=== PATIENT | female | born 1960 | race Caucasian/White ===

== ENCOUNTER 2016-07-14 10:37 | Emergency (ER) | payer BC ==
[2016-01-02 13:41] VITALS: BMI 33.9
[~2016-07-14 10:37] MED LIST: BUPROPION XL300 MG PO
== END 2016-07-14 13:10 | disposition home or self-care (01) ==
LOC: D.ER 10:37
DX: M54.30 Sciatica, unspecified side (principal); F32.9 Major depressive disorder, single episode, unspecified

== ENCOUNTER → 2019-06-22 15:21 | Outpatient (CLI) | payer BC ==
[2016-01-02 13:41] VITALS: BMI 33.9
== END | disposition home or self-care (01) ==
LOC: D.MRI 15:21
PROVIDERS: ATTEND Clinical Nurse Specialist Family Health
DX: M25.512 Pain in left shoulder (principal)

== ENCOUNTER 2019-07-24 07:19 | Outpatient (CLI) | payer BC, OTHER ==
[~2019-07-24] VITALS: Ht 157.5 cm; Wt 87.3 kg
--- NOTE | ~2019-07-24 | HEMODYNAMI ---
PATIENT:MEDINA BANKS MEDICAL RECORD: [id number] : 60 LOCATION:[facility] ADMISSION DATE: 07/24/19 Generatedon:07/24/201910:06 Patient name: MEDINA BANKS Patient #: [id number] SSN: [id number] : 1960 Date of study: 07/24/2019 Page: Of Hemodynamic Procedure Report Patient Data Patient Demographics Procedure consent was obtained First Name: MEDINA Gender: Female Last Name: JOCELYN : 1960 Patient #: [id number] Age: 59 year(s) Race: SSN: [id number] Additional ID: [id number] Contact details [address]: [address] [place] [address] STREET State: [place] City: [facility] Zip code: [address] Admission Admission Data Admission Date: 07/24/2019 Admission Time: 7:19 Procedure Procedure Types Cath Procedure Diagnostic Procedure LHC LHC w/Coronaries Sedation Charges Moderate Sedation up to 15 minutes Procedure Description Procedure Date Procedure Date: 07/24/2019 Procedure Start Time: 9:52 Procedure End Time: 10:01 Procedure Staff Name Function Rosanna Siddiqui RT Monitor Sukhwinder Cabrera MD Performing Physician Donna Nesbitt RT Scrub Shelly Lord RN Nurse Procedure Data Cath Procedure Fluoroscopy Diagnostic fluoroscopy Total fluoroscopy Time: 2 time: 2 min min Diagnostic fluoroscopy Total fluoroscopy dose: 347 dose: 347 mGy mGy Contrast Material Contrast Material Type Amount (ml) Isovue 300 33 Entry Location Entry Primary Successful Side Size Upsize Upsize Entry Closure Taylor ccessful Closure Location (Fr) 1 (Fr) 2 (Fr) Remarks Device Remarks Radial Right 6 Fr Mechanical artery Short Compression Estimated blood loss: 5 ml Diagnostic catheters Device Type Used For End Catheter Placement DIAGNOSTIC Boody 110cm 5 Multi-vessel Fr catheter ([id number]) Angiography Procedure Complications No complications Procedure Medications Medication Administration Route Dosage 0.9% NaCl I.V. 100 ml/hr Oxygen etCO2 Nasal cannula 2 l/min Lidocaine 2% added to field 20 Heparin Flush Bag added to field 2 bags (1000units/500ml NS) Radial Cocktail added to field 1 syringe (Verapamil 2mg/Nitro 400mcg/Heparin 1500units) Versed I.V. 2 mg Fentanyl I.V. 50 mcg Versed I.V. 2 mg Fentanyl I.V. 50 mcg Versed I.V. 1 mg Fentanyl I.V. 25 mcg Hemodynamics Rest Heart Rate: 40 (bpm) Pressure Samples Time Site Value (mmHg) Purpose Heart Use Rate(bpm) 9:55 LV 71/28,52 Snapshot 84 Snapshots Pre Cath Intra NCS Post Cath Vital Signs Time Heart Resp SPO2 etCO2 NIBP (mmHg) Rhythm Pain Sedation Rate (ipm) (%) (mmHg) Status Level (bpm) 9:33:02 89 16 98 38 122/86(113) NSR 0 (11) 10(A) , No pain 9:37:09 88 15 99 38.6 129/80(100) NSR 0 (11) 10(A) , No pain 9:41:17 97 13 98 38.4 124/80(95) NSR 0 (11) 10(A) , No pain 9:45:31 83 11 98 32.2 110/65(97) NSR 0 (11) 10(A) , No pain 9:49:35 91 10 99 27.6 109/78(90) NSR 0 (11) 10(A) , No pain 9:53:43 77 17 98 19.9 106/58(92) NSR 0 (11) 10(A) , No pain 9:57:46 85 11 97 18.4 118/74(92) NSR 0 (11) 10(A) , No pain Medications Time Medication Route Dose Verified Delivered Reason Notes Ef fectiveness by by 9:36:36 0.9% NaCl I.V. 100 Sukhwinder Shelly used for ml/hr Rick Lord bi tester 9:36:43 Oxygen etCO2 2 l/min Sukhwinder Shelly used for Nasal Rick Lord procedure cannula RN 9:36:47 Lidocaine 2% added 20ml Sukhwinder Pretty for local to vial Rick Cabrera MD anesthetic field 9:36:50 Heparin Flush added 2 bags Sukhwinder Pretty used for Bag to Rick Cabrera MD procedure (1000units/500ml field NS) 9:36:58 Radial Cocktail added 1 Sukhwinder Pretty used for (Verapamil to syringe Rick Cabrera MD procedure 2mg/Nitro field 400mcg/Hepari 9:43:17 Versed I.V. 2 mg Sukhwinder Shelly for Rick Lord sedation RN 9:43:25 Fentanyl I.V. 50 mcg Sukhwinder Shelly for Rick Lord sedation RN 9:50:33 Versed I.V. 2 mg Sukhwinder Shelly for Rick Lord sedation RN 9:50:40 Fentanyl I.V. 50 mcg Sukhwinder Shelly for Rick Lord sedation RN 9:55:51 Versed I.V. 1 mg Sukhwinder Shelly for Rick Lord sedation RN 9:55:57 Fentanyl I.V. 25 mcg Sukhwinder Shelly for Rick Lord sedation supervisor coil winding Log Time Note 9:11:13 Donna Nesbitt RT(R) sent for patient. Start room use. 9:30:20 Informed consent obtained and on chart 9:30:51 Diagnostic Cath Status : Elective 9:31:19 Time tracking: Regular hours (M-F 7:00 - 5:00) 9:31:26 Plan of Care:Hemodynamics will remain stable., Cardiac rhythm will remain stable., Comfort level will be maintained., Respiratory function will remain adequate., Patient/ family verbilizes understanding of procedure., Procedure tolerated without complication., Recovers from procedure without complications.. 9:31:36 Patient received from Pre/Post Procedure Room to CCL 2 Alert and oriented. Tansferred to table in Supine position. 9:31:37 Warm blankets applied, and jazmine hugger turned on for patient comfort. 9:31:38 Correct patient and procedure confirmed by team. 9:31:39 ECG and BP/O2 sat monitors applied to patient. 9:32:04 Vital chart was started 9:32:19 Baseline sample Acquired. 9:32:23 Rhythm: sinus rhythm 9:32:24 Full Disclosure recording started 9:32:28 H&P Date Dictated: 07/24/2019 H&P Addendum completed by physician on day of procedure. (MUST COMPLETE FOR ALL OUTPATIENTS), New H&P dictated by physician.. 9:32:29 Pre-procedure instructions explained to patient. 9:32:30 Pre-op teaching completed and patient verbalized understanding. 9:32:33 Family in patients room. 9:32:34 Patient NPO since Midnight. 9:32:37 Is the patient allergic to Iodine/contrast media? No. 9:32:38 Was the patient premedicated? Yes 9:32:46 Is patient on blood thinner?No 9:32:47 Patient diabetic? No. 9:32:49 Previous problem with sedation/anesthesia? No ? 9:32:51 Sleep apnea? No 9:32:51 Snore? No 9:32:52 Deviated septum? No 9:32:53 Opens mouth fully? Yes 9:32:54 Sticks out tongue? Yes 9:32:55 Airway obstruction? No ? 9:32:58 Dentures? No ? 9:33:09 Pre procedure: right dorsailis pedis pulse 2+ Normal; easily identifiable; not easily obliterated 9:33:12 Pre procedure: left dorsailis pedis pulse 2+ Normal; easily identifiable; not easily obliterated 9:33:14 Patient pain scale 0/10 ?. 9:33:21 IV patent on arrival in left forearm with 0.9% NaCl at [facility]. 9:33:24 Lab results completed and on chart. 9:36:36 0.9% NaCl 100 ml/hr I.V. was administered by Shelly Lord RN; used for procedure; Verbal order read back and verified. 9:36:43 Oxygen 2 l/min etCO2 Nasal cannula was administered by Shelly Lord RN; used for procedure; Verbal order read back and verified. 9:36:47 Lidocaine 2% 20ml vial added to field was administered by Sukhwinder Cabrera MD; for local anesthetic; Verbal order read back and verified. 9:36:50 Heparin Flush Bag (1000units/500ml NS) 2 bags added to field was administered by Sukhwinder Cabrera MD; used for procedure; Verbal order read back and verified. 9:36:58 Radial Cocktail (Verapamil 2mg/Nitro 400mcg/Heparin 1500units) 1 syringe added to field was administered by Sukhwinder Cabrera MD; used for procedure; Verbal order read back and verified. 9:40:35 Baseline sample Acquired. 9:40:58 Risk of Mortality: 0.1 9:41:00 Risk of blood transfusion: 0.1 9:41:02 Risk of WILNER: 0.4 9:41:08 Right Radial & Right Groin area was prepped with chlora-prep and draped in sterile fashion 9:41:09 Alarms reviewed by R. N. 9:41:10 Sharps counted by scrub and verified by R.N. 9:42:13 Physician arrived 9:42:14 Final Timeout: patient, procedure, and site verified with staff and physician. All members of the team are in agreement. 9:42:14 --------ALL STOP TIME OUT------ 9:42:17 Right Radial & Right Groin site verified by team. 9:42:20 Fire Safety Assessment: A--An alcohol-based skin anteseptic being used preoperatively., C--Open oxygen or nitrous oxide is being used., D--An ESU, laser, or fiber-optic light is being used. 9:42:23 Physical assessment completed. ASA score P 2 - A patient with mild systemic disease as per Sukhwinder Cabrera MD. 9:42:32 2) 60-89 Mildly reduced kidney function, and other findings (as for stage 1) point to kidney disease. 9:43:17 Versed 2 mg I.V. was administered by Shelly Lord RN; for sedation; Verbal order read back and verified. 9:43:25 Fentanyl 50 mcg I.V. was administered by Shelly Lord RN; for sedation; Verbal order read back and verified. 9:47:08 Maximum allowable contrast dose (3.7 X eGFR X 0.75)188 ml. 9:47:12 Sedation plan: IV Moderate Sedation Medication:Versed, Fentanyl 9:47:16 Use device set Radial Dx or PCI 9:47:18 Bag Decanter () opened to sterile field. 9:47:18 Medline Cath Pack ([id number]) opened to sterile field. 9:47:18 ACIST Syringe (15891) opened to sterile field. 9:47:19 ACIST Hand Control (44793) opened to sterile field. 9:47:20 Tegaderm 4 x 4 (1626W) opened to sterile field. 9:47:20 ACIST Manifold (45938) opened to sterile field. 9:47:21 MBrace Wrist Support ([id number]) opened to sterile field. 9:47:24 SHEATH 6FR RAIN (3269557) opened to sterile field. 9:47:24 EMERALD Guide Wire (896-136) opened to sterile field. 9:50:33 Versed 2 mg I.V. was administered by Shelly Lord RN; for sedation; Verbal order read back and verified. 9:50:40 Fentanyl 50 mcg I.V. was administered by Shelly Lord RN; for sedation; Verbal order read back and verified. 9:51:20 Procedure started. 9:52:54 Local anesthetic to right radial artery with Lidocaine 2% by Sukhwinder Cabrera MD.INITIAL ACCESS ONLY 9:53:19 A 6 Fr Short sheath was inserted into the Right Radial artery 9:53:29 A DIAGNOSTIC Boody 110cm 5 Fr catheter (292423) was advanced over the wire and used for Multi-vessel Angiography. 9:55:15 LV hemodynamics recorded. 9:55:16 LV gram done using TRAYLOR 9:55:21 EF : 60 % 9:55:23 Injector settings: Ml/sec: 5, Volume: 15, 9:55:35 RCA angiography performed. 9:55:40 Injector settings: Ml/sec: 3, Volume: 6, 9:55:51 Versed 1 mg I.V. was administered by Shelly Lord RN; for sedation; Verbal order read back and verified. 9:55:57 Fentanyl 25 mcg I.V. was administered by Shelly Lord RN; for sedation; Verbal order read back and verified. 9:56:24 Catheter removed. 9:56:44 GUIDE 6FR XBC 3 ([id number]) opened to sterile field. 9:57:39 LCA angiography performed. 9:57:43 Injector settings: Ml/sec: 3, Volume: 6, 9:58:12 Catheter removed. 9:58:19 ZEPHYR REGULAR TR BAND (067443) opened to sterile field. 9:58:34 Sheath removed intact; hemostasis achieved with Mechanical Compression to the Right Radial artery. 9:58:36 Procedure ended.(Physican Out) 9:58:50 Fluoroscopy time 02.00 minutes. 9:58:54 Fluoroscopy dose: 347 mGy 9:58:54 Flurop Dose total: 347 9:59:07 Dose Area Product 45281 mGy/cm. 9:59:11 Contrast amount:Isovue 300 33ml. 9:59:12 Maximum allowable dose exceeded? No. 9:59:13 Sharps counted by scrub and verified by R.N. 9:59:15 [place] band inflated with 10cc of air. 9:59:17 Insertion/operative site no bleeding no hematoma. 9:59:20 Post right radial artery:stable 9:59:22 Post Procedure Pulses reassessed and unchanged 9:59:25 Post procedure rhythm: unchanged. 9:59:27 Estimated blood loss: 5 ml 9:59:29 Post procedure instruction explained to patient.Patient verbalizes understanding. 9:59:30 Patient needs reinforcement of post procedure teaching. 10:00:17 Procedure type changed to Cath procedure, Diagnostic procedure, LHC, [facility] w/Coronaries, Sedation Charges, Moderate Sedation up to 15 minutes 10:00:51 Procedure and supply charges have been captured, reviewed, submitted and are correct. 10:00:55 Procedure Complication : No complications 10:00:57 Vital chart was stopped 10:01:01 [facility] Findings: mild to moderate CAD (<70%) 10:01:03 Operative report dictated upon procedure completion. 10:01:04 See physician's report for complete and final results. 10:01:10 Report given to Pre/Post Procedure Room. 10:01:12 Full Disclosure recording stopped 10:01:12 Procedure ended. 10:01:19 End room use (Document Last) 10:01:58 End room use (Document Last) 10:02:26 End room use (Document Last) Device Usage Item Name Manufacture Quantity Catalog Hospital Part Current Minima l Lot# / Number Charge Number Stock Stock Serial# Code ACIST Acist 1 48310 216914 817577 [id number] 20 Syringe Medical (93299) Systems Inc Medline Medline 1 [id number] [id number] 02019 138797 5 Cath Pack ([id number]) Bag Microtek 1 834086 51131 810718 5 Decanter Medical Inc. () ACIST Hand Acist 1 64274 442488 212476 292530 5 Control Medical (65213) Systems Inc ACIST Acist 1 65365 758969 595875 230137 5 Manifold Medical (26007) Systems Inc Tegaderm 4 3M 1 1626W 569951 022453 532423 5 x 4 (1626W) MBrace Advanced 1 140-0250-00 546575 72360 254650 5 Wrist Vascular Support Dynamics ([id number]) EMERALD Cardinal 1 502455 583021 286028 968423 5 Guide Wire Health (502455) SHEATH 6FR Cardinal 1 5076988 023735 9810348 201147 5 RAIN Health (6538745) DIAGNOSTIC Terumo 1 40-9313 779941 295174 600134 5 Boody 110cm 5 Fr catheter (440421) GUIDE 6FR Cardinal 1 63581500 515851 49930 347252 5 XBC 3 Health (19903332) ZEPHYR Cardinal 1 534140 350905 1784972 760793 5 REGULAR TR Health BAND (262225) Signature Audit [place] Stage Time Signature Unsigned Intra-Procedure 07/24/2019 Rosanna Siddiqui 10:01:58 AM RT(R) Intra-Procedure 07/24/2019 Shelly Lord 10:02:26 AM MICKI Intra-Procedure 07/24/2019 Sukhwinder Cabrera MD 10:02:45 AM 07/24/2019 10:05:46 AM Intra-Procedure 07/24/2019 Sukhwinder Cabrera 10:06:36 AM Signatures Monitor : Rosanna Siddiqui RT Signature : Date : Time : Performing Physician : Signature : Sukhwinder Cabrera MD Date : Time : Nurse : Shelly Lord RN Signature : Date : Time : [facility] [address] [place] [address]
[~2019-07-24 07:19] MED LIST changes: +CELEBREX200 MG PO; +HYDROCODON-ACE1 EA10 PO; +LEVOTHYROXINE75 MCG PO; +TOPAMAX50 MG PO
[2019-07-24] MEDS ORDERED: SOMA350 MG PO (07:56)
[2019-07-24 08:12] VITALS: BP 150/81; Ht 157.5 cm; Wt 87.3 kg
[2019-07-24 08:33] LABS: BASOPHILS 0.4 % (0-2); EOSINOPHILS 2.8 % (0-7); HEMATOCRIT 43.7 % (36.0-48.0); HEMOGLOBIN 14.6 g/dL (12-16); IMMATURE GRANULOCYTES 0.2 % (0-5); LYMPHOCYTES 39.8 % (15-50); MCH 29.6 pg (26.0-34.0); MCHC 33.4 g/dL (31.0-37.0); MCV 88.6 fL (80.0-100.0); MEAN PLATELET VOLUME 9.6 fL (7.4-10.4); MONOCYTES 7.4 % (2-11); NEUTROPHILS 49.4 % (40-80); PLATELET COUNT 269 10x3/uL (130-400); RBC 4.93 10x6/uL (4.00-5.40); RDW 12.4 % (11.5-14.5); WBC 5.3 10x3/uL (4.8-10.8)
[2019-07-24 09:00] LABS: CALCIUM 8.9 mg/dL (8.5-10.1); CARBON DIOXIDE 26.8 mmol/L (21.0-32.0); CHOL - HDL RATIO 4.8 ratio (2.3-4.1); CREATININE - SERUM 0.9 mg/dL (0.6-1.3); LDL-HDL RATIO 3.3 ratio (1.5-3.5); POTASSIUM - SERUM 3.8 mmol/L (3.5-5.1)
--- NOTE | 2019-07-24 10:10 | NUR ---
PATIENT ARRIVED TO ROOM 8, PLACED ON CM AND 2L NC. VSS. RIGHT Z BAND WITH WRIST IMMOBILIZER IN PLACE, NO S/S OF BLEEDING OR HEMATOMA.
--- NOTE | 2019-07-24 10:25 | NUR ---
PATIENT RESTING, VSS ON 2L NC. RIGHT RADIAL SITE IS CDI, NO S/S OF BLEEDING OR HEMATOMA. NO C/O PAIN, NUMBNESS, OR TINGLING. WILL CONTINUE TO MONITOR.
--- NOTE | 2019-07-24 10:55 | NUR ---
PATIENT RESTING, VSS ON ROOM AIR. RIGHT RADIAL SITE IS CDI, NO S/S OF BLEEDING OR HEMATOMA. 3CC OF AIR REMOVED.
--- NOTE | 2019-07-24 11:25 | NUR ---
REMAINING AIR REMOVED FROM Z BAND, DRESSING APPLIED IS CDI, NO S/S OF BLEEDING OR HEMATOMA. NO C/O PAIN, NUMBNESS, OR TINGLING. VSS ON ROOM AIR. HEAD OF BED ELEVATED AT 90 DEGREES, PATIENT GIVEN TURKEY SANDWICH AND SODA PER REQUEST, NO N/V.
--- NOTE | 2019-07-24 12:00 | NUR ---
DRESSING AT RIGHT RADIAL SITE IS CDI, NO S/S OF BLEEDING OR HEMATOMA. NO C/O PAIN, NUMBNESS, OR TINGLING. VSS ON ROOM AIR. PHYSICIAN AT BEDSIDE TO UPDATE PATIENT. WRITTEN AND VERBAL DISCHARGE INSTRUCTIONS GIVEN TO PATIENT, PATIENT VOICES UNDERSTANDING. NO N/V.
--- NOTE | 2019-07-24 12:15 | NUR ---
PATIENT TRANSPORTED VIA WHEELCHAIR TO CAR WITH FRIEND DRIVING, ALL BELONGINGS WITH PATIENT.
--- NOTE | 2019-07-27 11:54 | HP ---
PATIENT: MEDINA BANKS MEDICAL RECORD: [id number] ACCOUNT: [id number] LOCATION:[facility] : 60 ADMISSION DATE: 07/24/19 PCP: ROBERT MEDINA MD HISTORY AND PHYSICAL EXAMINATION DATE OF SERVICE: 07/24/2019 ADMITTING DIAGNOSES: 1. Chest pain. 2. Shortness of breath. 3. Abnormal nuclear stress test. HISTORY OF PRESENT ILLNESS: Ms. Banks presents with chest pain, having shortness of breath. Risk stratification with stress test shows intermediate risk, now brought for cardiac catheterization. REVIEW OF SYSTEMS: The patient reports easy bruising but reports no swollen glands. The patient reports no fever, no night sweats, no significant weight gain, no significant weight loss. No significant exercise tolerance. The patient reports no dry eyes, no irritation, no vision change. Patient reports no difficulty hearing and no ear pain. Patient reports no frequent nose bleeds or nose and sinus problems. Patient reports no arm pain on exertion. No shortness of breath while lying down. No history of heart murmur. Patient reports no cough, no wheezing or coughing up blood. Patient reports no abdominal pain, no vomiting. Normal appetite. No diarrhea and not vomiting blood. No nausea and no constipation. Patient reports no incontinence. No difficulty urinating. No hematuria. No increased frequency. Patient reports no muscle aches. No weakness, no arthralgias, no back pain. No swelling of the extremities. Patient reports no abnormal mole, no jaundice, no rashes. Reports no loss of consciousness. No weakness and no numbness. No seizures, dizziness, or headaches. The patient reports no depression, no sleep disturbance, feeling safe in a relationship and no alcohol abuse. Patient reports on fatigue. Reports no runny nose or sinus pressure. No itching, no hives, and no frequent sneezing. PHYSICAL EXAMINATION: CONSTITUTIONAL/GENERAL APPEARANCE: Well nourished, well developed, appears stated age. EYES: Lids and conjunctivae noninjected. No discharge. No pallor. ENT: Lips within normal limit. No cyanosis. No pallor. NECK: Carotid arteries, bilateral normal upstroke. No bruits. No thrills. No jugular venous pressure or distention. CERVICAL LYMPH NODES: Nontender. Nonenlarged. THYROID: Not enlarged. No nodules. CARDIOVASCULAR: Precordial exam, nondisplaced. No heaves or pericardial thrills. Rate and rhythm, regular. Heart sounds, normal S1, normal S2. No S3, no gallop, no rub. Systolic murmur, not heard. Diastolic murmur, not heard. RESPIRATORY: Respiratory effort, unlabored. Normal curvature. No thoracic deformity. No chest wall tenderness. Percussion, resonant. Auscultation, clear. No wheezes, no rales, no rhonchi. ABDOMEN: Soft, nondistended, nontender. No abdominal pain, no vomiting and normal appetite. MUSCULOSKELETAL: No joint tenderness, normal gait, normal tone. SKIN: Warm and dry. HISTORY AND PHYSICAL [id number] MEDINA BANKS OVERALL IMPRESSION: Chest pain, abnormal nuclear stress test, high likelihood of hemodynamically significant coronary artery disease. We will proceed with coronary angiography. Further care depends upon findings of the angiography. TRANSINT:[id number] Voice Confirmation ID: [id number] DOCUMENT ID: [id number] BRITTANEY SELBY MD at 1154 CC: [id number] DICTATION DATE: 07/24/19 1011 PLUSH DRESSER: 07/24/19 1036 DEP CLI 07/24/19 [id number] [place] [address]
--- NOTE | 2019-07-27 11:54 | OP ---
PATIENT NAME: MEDINA BANKS MEDICAL RECORD: [id number] :60 LOCATION:D.CAT ADMISSION DATE: SURGEON: BRITTANEY SELBY MD DATE OF OPERATION: 07/24/2019 PROCEDURES: 1. Left heart catheterization. 2. Selective coronary angiography. 3. Left ventriculogram. INDICATION: Angina and coronary artery disease. PROCEDURE IN DETAIL: After informed consent was obtained and after a detailed description of the risks, benefits as well as alternative therapies, the patient elected to proceed with angiogram and heart catheterization. The right radial area was prepped and draped in normal sterile fashion. Right radial artery was cannulated via modified Seldinger technique with placement of 6-Amharic sheath. All catheters exchanged through this sheath. FINDINGS: Left ventriculogram was performed in standard 30-degree TRAYLOR view, reveals good cardiac wall motion throughout all segments. Overall ejection fraction estimated at 60%. SELECTIVE CORONARY ANGIOGRAPHY: Left main, left anterior descending, left circumflex, right coronary artery are all smooth-walled vessels with no angiographic evidence of coronary artery disease. OVERALL IMPRESSION: 1. No angiographic evidence of coronary artery disease. 2. Normal left heart pressures. 3. Normal left ventricular systolic function. Chest pain is noncardiac in etiology. No further cardiac workup needs to be ascertained. TRANSINT:[id number] Voice Confirmation ID: [id number] DOCUMENT ID: [id number] BRITTANEY SELBY MD at 1154 CC: [id number] DICTATION DATE: 07/24/19 1000 SENIOR CENTER MANAGER: 07/24/19 1227 DEP CLI 07/24/19 [place] [address]
== END 2019-07-24 12:15 ==
LOC: D.CATH 07:19
PROVIDERS: ATTEND Internal Medicine Interventional Cardiology
DX: I25.119 Atherosclerotic heart disease of native coronary artery with unspecified angina pectoris (principal); R07.9 Chest pain, unspecified; R06.02 Shortness of breath; R94.39 Abnormal result of other cardiovascular function study

== ENCOUNTER 2020-02-26 07:16 | Day surgery (SDC) | payer MEDICAID ==
[~2020-02-26] VITALS: Ht 157.5 cm; Wt 90.7 kg
[~2020-02-26 07:16] MED LIST changes: +SOMA350 MG PO
[2020-02-26 07:41] LABS: BASOPHILS 0.4 % (0-2); EOSINOPHILS 0.9 % (0-7); HEMATOCRIT 41.7 % (36.0-48.0); HEMOGLOBIN 13.8 g/dL (12-16); IMMATURE GRANULOCYTES 0.2 % (0-5); LYMPHOCYTES 38.1 % (15-50); MCHC 33.1 g/dL (31.0-37.0); MCV 87.6 fL (80.0-100.0); MEAN PLATELET VOLUME 9.7 fL (7.4-10.4); MONOCYTES 11.5 % (2-11); NEUTROPHILS 48.9 % (40-80); PLATELET COUNT 266 10x3/uL (130-400); RBC 4.76 10x6/uL (4.00-5.40); WBC 5.5 10x3/uL (4.8-10.8)
[2020-02-26 07:56] LABS: ANION GAP 13.1 mmol/L (8-16); CALCIUM 9.1 mg/dL (8.5-10.1); CARBON DIOXIDE 24.3 mmol/L (21.0-32.0); CREATININE - SERUM 0.9 mg/dL (0.6-1.3); POTASSIUM - SERUM 3.4 mmol/L (3.5-5.1)
[2020-02-26 10:23] VITALS: BP 135/70; Ht 157.5 cm; Wt 90.7 kg
--- NOTE | 2020-02-26 20:10 | NUR ---
RX'D WITH NORCO FOR PAIN. PT STATED PAIN DOWN TO 4/10. AMBULATED TO BR AND VOIDED WITHOUT DIFFICULTY. IV D/C'D WITH CANNULA INTACT, PRESSURD HELD AND DRSG PLACED. DISCHARGE INSTRUCTIONS GIVEN AND PT VERBALIZED AN UNDERSTANDING. DISCHARGED IN STABLE CONDITION AND W/O C/O
[2020-03-20] MEDS ORDERED: BACTRIM DS TAB1 EAC1 PO (20:50)
[2020-03-20] MEDS ORDERED: ACETAMINOPHEN500 M1 PO (20:51)
[2020-03-20] MEDS ORDERED: MUPIROCIN22 GM TOPICAL (20:51)
[2020-03-24] MEDS ORDERED: CIPRO500 MG PO (08:26)
[2020-03-24] MEDS ORDERED: TRAZODONE HCL100 MG PO (08:26)
--- NOTE | 2020-03-25 20:12 | OP ---
PATIENT NAME: MEDINA BANKS MEDICAL RECORD: [id number] :60 LOCATION:D.[facility] ADMISSION DATE: SURGEON: NARAYAN SEYMOUR MD DATE OF OPERATION: 02/26/2020 PREOPERATIVE DIAGNOSES: Symptomatic gallstones, also fatty liver disease. POSTOPERATIVE DIAGNOSES: Symptomatic gallstones, also fatty liver disease. PROCEDURES: 1. Laparoscopic cholecystectomy. 2. Intraoperative cholangiography without immediate surgeon interpretation. 3. 18-gauge core needle liver biopsies. SURGEON: Narayan Seymour MD SUPERVISOR TURKEY FARM: None. BLOOD LOSS: Minimal. ANESTHESIA: General. COMPLICATIONS: None. The risks, possible complications, and alternatives to the procedure were explained to the patient. She elects to proceed. The discussion specifically included, but was not limited to, bleeding requiring emergency reoperation, infection, intestinal injury, as well as common bile duct injury. OPERATIVE COURSE: The patient was conveyed to the operating room electively on 02/26/2020. General anesthesia was induced by the anesthesia staff. The incision was accomplished within the umbilicus. I dissected down to the umbilical hernia. Stay sutures of 0 Vicryl were placed on either side of the umbilical hernia defect which was incised and made larger. I then undermined some of the skin around the hernia defect. Through this incision, I inserted a 12-mm trocar. CO2 insufflation was begun. Once a sufficient pneumoperitoneum had been achieved, a 5-mm trocar was inserted through an incision in the left upper quadrant. A 5-mm trocar was inserted through an incision in the epigastrium. Another 5-mm trocar was inserted through an incision in the right upper quadrant. During the insertion of the trocars, there was no apparent injury to the bowels, any intraperitoneal or retroperitoneal structures. Abdominal survey was undertaken. There were some adhesions down in the pelvis. These were omental adhesions. Under laparoscopic guidance, I percutaneously accessed the right upper quadrant utilizing an 18-gauge core biopsy device. Core biopsies of the liver were obtained over its convexity. The biopsy sites were made hemostatic with electrocautery. I then grasped the gallbladder. I advanced a cholangiogram trocar. The gallbladder was partially intrahepatic. I punctured the fundus of the gallbladder. I aspirated bile. I then injected dye. Under real time OPERATIVE REPORT [id number] MEDINA BANKS fluoroscopy, static images were obtained and these are cholangiographic images. These were sent to the radiologist for interpretation. I then aspirated bile and removed the cholangiogram trocar. The gallbladder was grasped and retracted cephalad. The infundibulum was grasped and retracted laterally. Blunt dissection was begun at triangle of Calot. One cystic artery and one cystic duct were identified. These were clipped multiply and divided between clips. The gallbladder was excised from its bed in the liver. It was placed within a bag retrieval device and was withdrawn through the umbilical fascia defect. The 12-mm trocar was placed and the abdomen reinsufflated. I irrigated and aspirated the bladder. There was no bleeding even at low pressure of 8. All trocars were removed and the abdomen desufflated. The skin around the fascia at the umbilicus was closed with interrupted horizontal mattress 0 Vicryls. The umbilical skin was closed with interrupted 4-0 Vicryl Rapide sutures. The other trocar sites were closed with interrupted intracuticular 3-0 Vicryls. Benzoin and Steri-Strips were applied. The patient was then extubated and conveyed to post-anesthesia care unit where she was in stable condition. TRANSINT:[id number] Voice Confirmation ID: [id number] DOCUMENT ID: [id number] NARAYAN SEYMOUR MD at 2012 CC: [id number] DICTATION DATE: 03/24/201920 FIRE MANAGER: 03/24/202151 [facility] 02/26/20 [address] [place] [address]
== END 2020-02-26 19:00 | disposition home or self-care (01) ==
LOC: D.OPS 07:16
PROVIDERS: ATTEND Surgery
DX: K80.20 Calculus of gallbladder without cholecystitis without obstruction (principal)

== ENCOUNTER → 2020-03-14 19:45 | Outpatient (CLI) | payer MEDICAID ==
[2020-02-26 10:23] VITALS: BMI 36.6
== END | disposition home or self-care (01) ==
LOC: D.LABREF 19:45
PROVIDERS: ATTEND Nurse Practitioner
DX: L03.90 Cellulitis, unspecified (principal)